=== PATIENT | female | born 1995 | race Two or more races ===

== ENCOUNTER 2021-11-09 15:14 | Inpatient (IN) | payer OTHER ==
[2021-11-09] MEDS ORDERED: SODIUM CHLORIDE 0.9% 1000 ML INFUS.BAG IV ONE ×2 (16:04→16:38)
[2021-11-09] MEDS ORDERED: ACETAMINOPHEN 1000 MG/100 ML BAG IVPB ONE (16:38)
[2021-11-09] MEDS ORDERED: ONDANSETRON 4 MG/2 ML VIAL IVPUSH ONE (16:39)
[2021-11-09 17:15] LABS: HEMOGLOBIN 10.9 G/dL (10.7-15.3); MEAN CELL VOLUME 56.4 fl (80-96); MEAN PLT VOLUME 8.7 fl (7.5-11.1); PLATELET COUNT 395.7 10^3/uL (134-434); RBC 5.68 10^6/uL (3.60-5.2); RDW 24.1 % (11.6-15.6); WHITE BLOOD COUNT 26.2 10^3/uL (4.0-10.8)
[2021-11-09 17:25] LABS: MCH 19.2 pg (25.7-33.7)
[2021-11-09 17:26] LABS: HCG,QUALITATIVE URINE Negative
[2021-11-09 17:32] LABS: INR 1.58 (0.83-1.09); PROTHROMBIN TIME (PATIENT) 18.2 SEC (9.7-13.0)
[2021-11-09 17:44] LABS: ALBUMIN 2.8 g/dl (3.4-5.0); BILIRUBIN,TOTAL 1.2 mg/dl (0.2-1); CALCIUM 8.8 mg/dl (8.5-10); CREATININE 2.3 mg/dl (0.55-1.3); TOT PROT 7.5 g/dl (6.4-8.2)
[2021-11-09] MEDS ORDERED: PIPERACILLIN/TAZOB 2.25 GM 2.25 GM in DEXTROSE 5%-WATER - 50 ML IVPB ONE (18:18)
[2021-11-09] MEDS ORDERED: LACTATED RINGERS SOLUTION 1000 ML INFUS.BAG IV ONE (18:19)
[2021-11-09 18:20] LABS: AMORP URATES 2+ /hpf (NONE SEEN); EPITHELIAL CELLS MODERATE /hpf
[2021-11-09 18:52] LABS: TARGET CELLS 1+; TEAR DROP CELLS 2+
[2021-11-09 18:53] LABS: ANISOCYTOSIS 2+; OVALOCYTE 2+
[2021-11-09 18:54] LABS: PLATELET ESTIMATE ADEQUATE
[2021-11-09 19:01] LABS: CALCIUM 7.6 mg/dl (8.5-10); CREATININE 2.1 mg/dl (0.55-1.3)
[2021-11-10] MEDS ORDERED: SODIUM CHLORIDE 1,000 ML IV STA (01:21)
[2021-11-10] MEDS: ACETAMINOPHEN 1000 MG/100 ML BAG IVPB PRN ×3 (01:32→16:03)
[2021-11-10 01:40] VITALS: BMI 34.8
[2021-11-10] MEDS ORDERED: PIPERACILLIN/TAZOB 3.375 GM 3.375 GM in DEXTROSE 5%-WATER - 50 ML IVPB ONE (03:00)
[2021-11-10] MEDS ORDERED: PIPERACILLIN/TAZOBACTAM 3.375 GM VIAL IVPB ONE (03:46)
[2021-11-10] MEDS ORDERED: DEXTROSE 5%-WATER - 50 ML IVPB ONE (03:47)
[2021-11-10] MEDS ORDERED: ONDANSETRON 4 MG/2 ML VIAL IVPUSH ONE (06:49)
[2021-11-10] MEDS ORDERED: SODIUM CHLORIDE 1,000 ML IV SCH (07:15)
[2021-11-10 07:23] LABS: IRON SERUM 10 ug/dL (50-175)
[2021-11-10 07:24] LABS: TOTAL IRON BINDING CAPACITY 218 ug/dL (250-450)
[2021-11-10 07:25] LABS: LDH 158 U/L (84-246)
[2021-11-10] MEDS ORDERED: DEXTROSE 5%-WATER 100 ML IVPB ONE (09:39)
[2021-11-10] MEDS ORDERED: PIPERACILLIN/TAZOBACTAM 4.5 GM VIAL IVPB ONE (09:39)
[2021-11-10] MEDS ORDERED: PANTOPRAZOLE 20 MG TABLET PO SCH (10:00)
[2021-11-10] MEDS ORDERED: PIPERACILLIN/TAZOB 4.5 GM 4.5 GM in DEXTROSE 5%-WATER 100 ML IVPB SCH (10:00)
[2021-11-10] MEDS ORDERED: MUPIROCIN 2% TOPICAL OINTMENT FOR DECOLONIZATION NS SCH (10:00)
[2021-11-10 10:50] LABS: HEMATOCRIT 23.5 % (32.4-45.2); HEMOGLOBIN 7.6 GM/dL (10.7-15.3); MCHC 32.2 g/dl (32.0-36.0); MEAN CELL VOLUME 53.2 fl (80-96); MEAN PLT VOLUME 8.7 fl (7.5-11.1); PLATELET COUNT 334 10^3/uL (134-434); RBC 4.42 M/mm3 (3.60-5.2); RDW 18.4 % (11.6-15.6); WHITE BLOOD COUNT 25.3 K/mm3 (4.0-10.0)
[2021-11-10 10:52] LABS: MCH 17.2 pg (25.7-33.7)
[2021-11-10 10:56] LABS: INR 1.41 (0.83-1.09); PROTHROMBIN TIME (PATIENT) 16.3 SEC (9.7-13.0)
[2021-11-10 10:59] LABS: ACTIVATED PTT 24.6 SECONDS (25.2-36.5)
[2021-11-10 11:09] LABS: MAGNESIUM 2.3 mg/dL (1.8-2.4)
[2021-11-10 11:13] LABS: PHOSPHOROUS 3.5 mg/dL (2.5-4.9)
[2021-11-10] MEDS ORDERED: PANTOPRAZOLE SODIUM 40 MG VIAL IVPUSH SCH (12:00)
[2021-11-10 16:27] LABS: CALCIUM 8.6 mg/dL (8.5-10.1)
[2021-11-10 16:31] LABS: CREATININE 1.3 mg/dL (0.55-1.3)
[2021-11-10 16:40] VITALS: BP 120/64; PULSE 92; TEMP 98.8
[2021-11-10] MEDS ORDERED: PIPERACILLIN/TAZOB 3.375 GM 3.375 GM in DEXTROSE 5%-WATER - 50 ML IVPB SCH (18:00)
[2021-11-10] MEDS ORDERED: CHLORHEXIDINE GLUCONATE 4% CLEANSER FOR DECOLONIZATION TP SCH (22:00)
[2021-11-11] MEDS ORDERED: PIPERACILLIN/TAZOB 4.5 GM 4.5 GM in DEXTROSE 5%-WATER 100 ML IVPB SCH (09:00)
[2021-11-11 15:41] LABS: HIV INTERPRETATION NEGATIVE (NEGATIVE)
== END 2021-11-10 18:33 | disposition short-term general hospital (02) | DRG 532 ==
LOC: FER 15:14 → FM/S 20:57 → JICU 11-10 00:30
PROVIDERS: ADMIT Internal Medicine Pulmonary Disease; ATTEND Internal Medicine
DX: E28.2 Polycystic ovarian syndrome (principal); N17.9 Acute kidney failure, unspecified; E87.1 Hypo-osmolality and hyponatremia; H54.8 Legal blindness, as defined in USA; N92.6 Irregular menstruation, unspecified; Q90.9 Down syndrome, unspecified; R06.09 Other forms of dyspnea; R11.2 Nausea with vomiting, unspecified; R19.7 Diarrhea, unspecified; R25.2 Cramp and spasm; R50.9 Fever, unspecified; K59.00 Constipation, unspecified; D64.9 Anemia, unspecified; M54.50 Low back pain, unspecified
CPT/HCPCS: 36415; 71045-TC-FY; 74176-TC; 76830-TC; 80048; 80053; 81003; 81015; 81025; 82570; 83010; 83540; 83550; 83605; 83615; 83735; 84100; 84300; 84702; 84703; 85027; 85045; 85610; 85730; 86850; 86900; 86901; 87040; 87081; 87086; 87186; 87389; 87491; 87591; 87661; 87804; 93005; 93010; 99285-25; C9803-CS; U0003; U0005